=== PATIENT | male | born 1970 | race Two or more races ===

== ENCOUNTER 2023-11-09 23:18 | Emergency (ER) | payer BC, OTHER ==
[~2023-11-09] VITALS: Ht 167.6 cm; Wt 115.0 kg
[2023-11-09 23:18] VITALS: BP 170/95; PULSE 77; RESP 20; O2SAT 99
[2023-11-10] MEDS ORDERED: CEPH500C PO (02:33)
[2023-11-10] MEDS ORDERED: IBUP-1456 PO (02:33)
[2023-11-10] MEDS: TETANUS-DIPTH-ACEL PERTUSSIS 0.5ML SYR Tdap IM ONE (02:35)
== END 2023-11-10 03:04 | disposition home or self-care (01) ==
LOC: ER 23:18
DX: S61.214A Laceration without foreign body of right ring finger without damage to nail, initial encounter (principal); E11.9 Type 2 diabetes mellitus without complications; I10 Essential (primary) hypertension; Z79.1 Long term (current) use of non-steroidal anti-inflammatories (NSAID); W45.8XXA Other foreign body or object entering through skin, initial encounter; Y93.89 Activity, other specified; Y92.89 Other specified places as the place of occurrence of the external cause; Y99.8 Other external cause status
CPT/HCPCS: 12002; 73140; 90471; 90715; 96372